=== PATIENT | female | born 1990 | race African-American/Black ===

== ENCOUNTER 2017-02-14 02:34 | Emergency (ER) | payer MEDICAID, OTHER ==
[~2017-02-14] VITALS: Ht 160 cm; Wt 55.0 kg
[2017-02-14 06:40] LABS: CLARITY URINE TURBID (CLEAR); COLOR URINE YELLOW (YELLOW); KETONES URINE 2+ (NEGATIVE); LEUKOCYTE ESTERASE URINE TRACE (NEGATIVE); NITRITE URINE NEGATIVE (NEGATIVE); OCCULT BLOOD URINE NEGATIVE (NEGATIVE); PH URINE 5.5 (4.5-8.0); PROTEIN URINE TRACE (NEGATIVE); SPECIFIC GRAVITY URINE 1.036 (1.005-1.030)
[2017-02-14] MEDS ORDERED: KETOROLAC 30MG/ML VIAL IV ONE (06:45)
[2017-02-14] MEDS ORDERED: SODIUM CHLORIDE 0.9% 1,000 ML IV ONE (06:45)
[2017-02-14] MEDS ORDERED: ONDANSETRON HCL 4MG/2ML VIAL IV ONE (06:45)
[2017-02-14 07:24] LABS: HEMATOCRIT. 35.6 % (36.0-48.0); HEMOGLOBIN. 11.6 g/dL (12.0-16.0); MEAN CORPUSCULAR HEMOGLOBIN 27.6 pg (28.0-32.0); MEAN CORPUSCULAR VOLUME 84.6 fL (81.0-99.0); MEAN PLATELET VOLUME 7.9 fl (7.4-10.4); PLATELET 221 x1000/uL (130-400)
[2017-02-14 07:40] LABS: CARBON DIOXIDE 22 mEq/L (21-32); CHLORIDE 110 mEq/L (98-107)
[2017-02-14 08:26] LABS: PLATELET ESTIMATE NORMAL
[2017-02-14 10:54] VITALS: BP 122/63
[2017-02-14] MEDS ORDERED: SODIUM CHLORIDE 0.9% 1000ML BAG (SEPSIS BOLUS) IV ONE (11:00)
== END 2017-02-14 11:48 | disposition home or self-care (01) ==
LOC: ER 02:35
DX: R10.84 Generalized abdominal pain (principal); N39.0 Urinary tract infection, site not specified; E83.51 Hypocalcemia; R03.0 Elevated blood-pressure reading, without diagnosis of hypertension; F12.90 Cannabis use, unspecified, uncomplicated
CPT/HCPCS: 36415; 76705; 80053; 81001; 81025; 83690; 85025; 87086; 96374; 96375; 99285; C1893; J1885; J2405; J7030; Z7610

== ENCOUNTER 2019-12-28 12:50 | Emergency (ER) | payer OTHER, MEDICAID ==
[~2019-12-28] VITALS: Ht 160 cm; Wt 59.0 kg
[2019-12-28 13:18] VITALS: BP 126/75
== END 2019-12-28 14:25 | disposition home or self-care (01) ==
LOC: ER 13:13
DX: Z48.00 Encounter for change or removal of nonsurgical wound dressing (principal)
CPT/HCPCS: 99281

== ENCOUNTER 2020-01-04 14:08 | Emergency (ER) | payer MEDICAID, OTHER ==
[~2020-01-04] VITALS: Ht 160 cm; Wt 57.0 kg
[2020-01-04 14:13] VITALS: BP 127/81
== END 2020-01-04 15:07 | disposition home or self-care (01) ==
LOC: ER 14:08
DX: Z48.02 Encounter for removal of sutures (principal)
CPT/HCPCS: 99281

== ENCOUNTER 2021-05-31 20:40 | Emergency (ER) | payer OTHER ==
[~2021-05-31] VITALS: Ht 160 cm; Wt 68.0 kg
[2021-05-31 20:41] VITALS: BP 104/65
== END 2021-05-31 23:34 | disposition left against medical advice (07) ==
LOC: ER 20:40
DX: Z53.21 Procedure and treatment not carried out due to patient leaving prior to being seen by health care provider (principal); R07.9 Chest pain, unspecified
CPT/HCPCS: 93005

== ENCOUNTER 2023-07-06 23:17 | Emergency (ER) | payer OTHER ==
[~2023-07-06] VITALS: Ht 160 cm; Wt 71.0 kg
[2023-07-06 23:24] VITALS: TEMP 98.7; O2SAT 100
[2023-07-07 02:36] VITALS: BP 127/70; PULSE 118; RESP 14
[2023-07-07] MEDS: KETOROLAC 60MG/2ML VIAL IM STA (02:36)
[2023-07-07] MEDS: CEFTRIAXONE SODIUM 1G VIAL IM ONE (02:45)
[2023-07-07] MEDS: LIDOCAINE HCL/PF 1% 10 MG/ML 5ML VIAL INFIL ONE (02:45)
[2023-07-07] MEDS ORDERED: SULF1TAB48 MT (03:26)
[2023-07-07] MEDS ORDERED: CEPH500C2 MT (03:26)
[2023-07-07] MEDS ORDERED: T3 PO (03:27)
[2023-07-07] MEDS ORDERED: NAPR-681 MT (03:27)
== END 2023-07-07 04:25 | disposition home or self-care (01) ==
LOC: ER 23:17
DX: N61.1 Abscess of the breast and nipple (principal); F12.10 Cannabis abuse, uncomplicated
CPT/HCPCS: 99284; 81025; 96372; J0696; J1885; J3490

== ENCOUNTER 2024-01-13 17:35 | Emergency (ER) | payer MEDICAID ==
[~2024-01-13] VITALS: Ht 160 cm; Wt 68.0 kg
[~2024-01-13 17:35] MED LIST: CEPH500C2 MT; NAPR-681 MT; SULF1TAB48 MT; T3 PO
[2024-01-13 17:55] VITALS: O2SAT 99
[2024-01-13] MEDS: ACETAMINOPHEN 325MG TABLET PO ONE (20:00)
[2024-01-13] MEDS: ONDANSETRON 4MG ODT PO ONE (20:00)
[2024-01-13 21:12] LABS: CHLORIDE 98 mEq/L (98-107); POTASSIUM 3.6 mEq/L (3.5-5.1); SODIUM 132 mEq/L (136-145)
[2024-01-13 21:13] LABS: CALCIUM 10.3 mg/dL (8.7-10.4); CARBON DIOXIDE 23 mEq/L (21-32)
[2024-01-13 21:15] LABS: BASOPHILS % 0.3 % (0.0-2.0); EOSINOPHILS % 0.6 % (0.0-5.0); HEMATOCRIT. 40.3 % (36.0-48.0); HEMOGLOBIN. 12.9 g/dL (12.0-16.0); LYMPHOCYTES % 9.7 % (20.0-50.0); MEAN CORPUSCULAR HEMOGLOBIN 26.1 pg (28.0-32.0); MEAN CORPUSCULAR HGB CONC 32.1 g/dL (31.0-37.0); MEAN CORPUSCULAR VOLUME 81.3 fL (81.0-99.0); MONOCYTES % 7.8 % (2.0-8.0); NEUTROPHILS % 81.6 % (40.0-76.0); RED BLOOD CELL COUNT 4.96 mill/uL (4.2-5.4); RED CELL DISTRIBUTION WIDTH 18.1 % (11.6-14.6); WHITE BLOOD COUNT 18.1 x1000/uL (4.5-11.0)
[2024-01-13 21:16] LABS: DIFFERENTIAL COMMENT 1
[2024-01-13 21:18] LABS: CREATININE 0.8 mg/dL (0.6-1.0); GLUCOSE 118 mg/dL (70-105); UREA NITROGEN BLOOD 12 mg/dL (9-23)
[2024-01-13 21:31] LABS: B-HCG QUANTITATIVE 96316 mIU/mL (<3)
[2024-01-13] MEDS ORDERED: TOPUD PO (21:43)
[2024-01-13] MEDS ORDERED: ONDA4TAB50 PO (21:43)
[2024-01-13] MEDS: ONDANSETRON HCL 4MG TABLET PO ONE (21:45)
[2024-01-13] MEDS: ACETAMINOPHEN 325MG TABLET PO NR (21:45)
[2024-01-13 21:47] LABS: PLATELET 406 x1000/uL (130-400)
[2024-01-13 22:00] VITALS: BP 116/75; PULSE 78; RESP 16; TEMP 36.61404; O2SAT 100
== END 2024-01-13 22:00 | disposition home or self-care (01) ==
LOC: ER 17:35
DX: O26.891 Other specified pregnancy related conditions, first trimester (principal); F12.90 Cannabis use, unspecified, uncomplicated; Z3A.01 Less than 8 weeks gestation of pregnancy; Z79.899 Other long term (current) drug therapy
CPT/HCPCS: 99284; 76801; 80048; 81025; 84702; 85025; 86850; 86900; 86901; 36415; 76817; Q0162